=== PATIENT | female | born 1950 | race Caucasian/White ===

== ENCOUNTER → 2017-02-21 | Outpatient (CLI) | payer OTHER | LOC: FIMAGING 11:52 | PROVIDERS: ATTEND Family Medicine | DX: Z12.31 Encounter for screening mammogram for malignant neoplasm of breast (principal); Z85.3 Personal history of malignant neoplasm of breast | CPT/HCPCS: G0202 ==

== ENCOUNTER 2017-02-28 10:54 | Day surgery (SDC) | payer OTHER ==
[2017-02-28] MEDS ORDERED: MEPERIDINE 25 MG/ML SYR IVP PRN (11:32)
[2017-02-28] MEDS ORDERED: MIDAZOLAM 2 MG/2 ML VIAL IVP PRN (11:32)
[2017-02-28] MEDS ORDERED: NALOXONE HCL 0.4 MG/ML INJ IVP PRN (11:32)
[2017-02-28] MEDS ORDERED: fentaNYL 100 MCG/2 ML INJ IVP PRN (11:32)
[2017-02-28] MEDS ORDERED: FLUMAZENIL 0.5 MG/5 ML MDV IVP PRN (11:32)
[2017-02-28] MEDS ORDERED: NS 1,000 ML IV SCH (11:45)
[2017-02-28 11:54] VITALS: PULSE 62
[2017-02-28] MEDS ORDERED: fentaNYL 100 MCG/2 ML INJ ONE ×2 (12:56→13:58)
[2017-02-28] MEDS ORDERED: MIDAZOLAM 2 MG/2 ML VIAL ONE ×2 (12:56→13:58)
--- NOTE | 2017-02-28 13:42 | PDGENHP ---
History & Physical Chief Complaint: Left sciatica History of Present Illness: 5 months of pain in lateral left thigh and calf. 5/ 10 pain today. MRI [facility] Images 02-18-17 Pertinent Past, Social, Family History: colonoscopy 10 years ago. IVCS handled well. Hypertension Relevant Physical Exam: Heart; 68 bpm, RRR, no murmur. Lungs: clear to auscultation
--- NOTE | 2017-02-28 13:43 | PDPROPOC ---
Sedation Plan of Care Sedation Plan of Care: vital signs stable, mental status noted, patient educated of risks, benefits, alternatives, patient can tolerate sedation ASA Classification: ASA 1 Planned drugs: fentanyl, midazolam Mallampati Score: Class 1 Mallampati Reference Image: Patient passed 3-3-2 rule?: Yes
[2017-02-28] MEDS ORDERED: ONDANSETRON 4 MG/2 ML VIAL IVP PRN (14:25)
--- NOTE | 2017-02-28 14:25 | PDRADPN ---
Radiology Procedure Note Date of Procedure: 02/28/17 Radiologist: Trell Saha Anesthesia: IV Sedation Pre-op Diagnosis: Lumbar facet arthropathy, left L4-5 Post-op Diagnosis: same Indication: Pain, synovial cyst Procedure: Attempted left L4-5 facet injection Finding(s): Could not enter L4-5 facet joint. Procedural failure. Inf/Abcess present in the surg proc area at time of surgery?: No EBL: Minimal Complications: 0
[2017-02-28] MEDS ORDERED: IOPAMIDOL (ISOVUE-M 300) 15 ML VIAL ONE (14:28)
[2017-02-28 15:27] VITALS: O2SAT 93
[2017-02-28 15:53] VITALS: BP 143/92
[2017-02-28 16:04] VITALS: RESP 16; TEMP 97.5
== END 2017-02-28 15:45 | disposition home or self-care (01) ==
LOC: FIMAGING 10:54
PROVIDERS: ATTEND Radiology Diagnostic Radiology
PROC: 3E0R33Z Introduction of Anti-inflammatory into Spinal Canal, Percutaneous Approach (ICD-10-PCS; principal; 2017-02-28 14:22)
PROC: B01B1ZZ Fluoroscopy of Spinal Cord using Low Osmolar Contrast (ICD-10-PCS; principal; 2017-02-28 14:22)
DX: M54.42 Lumbago with sciatica, left side (principal); Z53.09 Procedure and treatment not carried out because of other contraindication; G96.19 Other disorders of meninges, not elsewhere classified
CPT/HCPCS: J2250; J3010; Q9967

== ENCOUNTER → 2018-02-24 | Outpatient (CLI) | payer OTHER | LOC: FIMAGING 08:53 | PROVIDERS: ATTEND Family Medicine | DX: Z12.31 Encounter for screening mammogram for malignant neoplasm of breast (principal); Z80.3 Family history of malignant neoplasm of breast ==